=== PATIENT | female | born 1940 | race Caucasian/White ===

== ENCOUNTER → 2017-12-27 | Outpatient (CLI) | payer MEDICARE ==
--- NOTE | 2017-12-27 14:08 | Diagnostic Imaging Report ---
PROCEDURE: CT head without contrast. TECHNIQUE: Multiple contiguous axial images were obtained through the brain without the use of intravenous contrast. INDICATION: Dizziness. COMPARISON: None. FINDINGS: Moderate generalized cerebral and cerebellar parenchymal volume loss is likely age-appropriate. No CT evidence of acute infarction. No intracranial hemorrhage, mass effect, hydrocephalus or extra-axial fluid collections. Osseous structures are intact. The visualized paranasal sinuses and mastoids are clear. IMPRESSION: No acute intracranial CT findings. Dictated by: Dictated on workstation # [id number]
== END ==
LOC: RAD 12:51
PROVIDERS: ATTEND Internal Medicine
DX: R42 Dizziness and giddiness (principal)
CPT/HCPCS: 70450

== ENCOUNTER → 2018-01-08 | Outpatient (CLI) | payer MEDICARE ==
[~2018-01-08] MED LIST: RT-ALBUTEROL SULF 2.5 MG/3 ML PRE-MIX VIAL INH ONE
== END ==
LOC: RT 13:58
PROVIDERS: ATTEND Internal Medicine
DX: J44.9 Chronic obstructive pulmonary disease, unspecified (principal)
CPT/HCPCS: 94060; 94726; 94729

== ENCOUNTER 2018-08-13 08:37 | Outpatient (RCR) | payer MEDICARE | END 2018-11-11 | disposition home or self-care (01) | LOC: CARD 08:37 | PROVIDERS: ATTEND Internal Medicine | DX: R00.2 Palpitations (principal) | CPT/HCPCS: 93225; 93226 ==

== ENCOUNTER 2018-09-25 10:43 | Outpatient (RCR) | payer MEDICARE | END 2018-11-24 | disposition home or self-care (01) | LOC: CARD 10:43 | PROVIDERS: ATTEND Internal Medicine | DX: R00.2 Palpitations (principal) | CPT/HCPCS: 93270 ==

== ENCOUNTER → 2020-11-01 | Outpatient (CLI) | payer MEDICARE, OTHER ==
--- NOTE | 2020-11-01 12:24 | Diagnostic Imaging Report ---
EXAMINATION: PA and lateral chest at 10:57 a.m. INDICATION: COPD COMPARISON: There are no prior studies available for comparison. FINDINGS: The heart size is within normal limits. There are coarse perihilar markings bilaterally. There also appears to be a small area of increased density near the apex of the heart. These findings are most likely chronic in nature. There is no evidence for failure, pneumonia or for a pleural effusion to indicate an acute abnormality. There is a 3.0 x 4.7 cm area of eventration of the midportion of the right hemidiaphragm. The mediastinum is not widened. The osseous structures are intact. IMPRESSION: There is chronic pulmonary disease but there is no sign of an acute cardiopulmonary abnormality. Dictated by: Dictated on workstation # [id number]
== END ==
LOC: RAD 10:17
PROVIDERS: ATTEND Internal Medicine
DX: J44.9 Chronic obstructive pulmonary disease, unspecified (principal); E11.9 Type 2 diabetes mellitus without complications
CPT/HCPCS: 71046

== ENCOUNTER → 2021-02-08 | Outpatient (CLI) | payer MEDICARE, OTHER ==
--- NOTE | 2021-02-08 15:10 | Diagnostic Imaging Report ---
PROCEDURE: US right lower extremity venous. TECHNIQUE: Multiple real-time grayscale images were obtained over the right lower extremity in various projections. Additional spectral analysis and color Doppler duplex images were also obtained. INDICATION: Right lower extremity pain and edema. There is no evidence of right lower extremity DVT. Right lower extremity deep venous system shows normal compressibility with normal response to augmentation and Valsalva. No fluid collection or mass is detected. IMPRESSION: No evidence of right lower extremity DVT. Dictated by: Dictated on workstation # [id number]
== END ==
LOC: RAD 13:30
PROVIDERS: ATTEND Internal Medicine
DX: M79.661 Pain in right lower leg (principal); R60.0 Localized edema

== ENCOUNTER → 2021-03-13 | Outpatient (CLI) | payer MEDICARE, OTHER ==
--- NOTE | 2021-03-13 09:30 | Diagnostic Imaging Report ---
INDICATION: GENERALIZED EDEMA TECHNIQUE: Multiple real-time fleming scale sonographic images of the abdomen. CORRELATION STUDY: None FINDINGS: LIVER: Liver length 17.8 cm. At the hepatic dome, there is a rounded hypoechoic region. This measures 1.7 x 2.1 x 1.1 cm. No internal vascular blood flow. There is normal, hepatopedal direction of flow within the main portal vein. GALLBLADDER: Multiple mobile shadowing gallstones. No significant gallbladder wall thickening. Gallbladder is mildly distended. COMMON BILE DUCT: Nondilated at 0.5 cm. PANCREAS: Limited in visualization. The visualized portions appearing unremarkable. SPLEEN: Unremarkable. ABDOMINAL AORTA: Asymmetric ectasia at the inferior aspect up to 2.7 cm in size. INFERIOR VENA CAVA: Limited in visualization. RIGHT KIDNEY: 11.5 x 5.6 x 7.1 cm. Unremarkable. LEFT KIDNEY: 11.4 x 4.9 x 4.9 cm. Unremarkable. OTHER: There is note made of large amount of stool and/or gas in the gastrointestinal tract. This does limit overall assessment. IMPRESSION: 1. Indeterminate lesion of the hepatic dome. Could potentially reflect a cyst but cannot be dismissed as cyst this time. Short-term followup repeat ultrasound or preferably pre and post contrast-enhanced CT imaging the abdomen. 2. Cholelithiasis. 3. Ectasia of the abdominal aorta just under 3 cm maximum size. Dictated by: Dictated on workstation # [id number]
== END ==
LOC: CARD 08:00
PROVIDERS: ATTEND Internal Medicine
DX: K76.89 Other specified diseases of liver (principal); K80.20 Calculus of gallbladder without cholecystitis without obstruction; I77.811 Abdominal aortic ectasia; R60.1 Generalized edema
CPT/HCPCS: 76700; 93306

== ENCOUNTER → 2021-03-23 | Outpatient (CLI) | payer MEDICARE, OTHER ==
[~2021-03-23] MED LIST changes: +CATHETER FLUSH 10 ML SYR IV PRN; +HOLD METFORMIN - RECEIVED CONTRAST 20 ML VIAL IV SCH; +IOHEXOL 350 MG/ML 100 ML (OMNIPAQUE 350) VIAL IV ONE; +NS 100 ML (IVPB) BAG IV ONE; -RT-ALBUTEROL SULF 2.5 MG/3 ML PRE-MIX VIAL INH ONE
[2021-03-23 07:53] LABS: CHLORIDE 106 MMOL/L (98-107); POTASSIUM 4.1 MMOL/L (3.6-5.0); SODIUM 141 MMOL/L (135-145)
[2021-03-23 07:55] LABS: CALCIUM 9.6 MG/DL (8.5-10.1); GLUCOSE 124 MG/DL (70-105)
[2021-03-23 07:57] LABS: CARBON DIOXIDE 23 MMOL/L (21-32)
[2021-03-23 07:59] LABS: GFR ESTIMATED > 60
[2021-03-23 08:00] LABS: BUN/CREATININE RATIO 26
--- NOTE | 2021-03-23 09:14 | Diagnostic Imaging Report ---
PROCEDURE: CT abdomen and pelvis with and without contrast. TECHNIQUE: Precontrast acquisitions were acquired through the abdomen and pelvis. Multiple contiguous axial images were obtained through the abdomen and pelvis after the administration of intravenous contrast. Auto Exposure Controls were utilized during the CT exam to meet ALARA standards for radiation dose reduction. INDICATION: Liver lesion noted by recent ultrasound. Study is performed for further evaluation. Correlation is made with abdominal ultrasound from 03/13/2021. FINDINGS: The lung bases are clear. There are 2 low-density lesions within the liver. One of which is in the dome, corresponding to the ultrasound abnormality. These do not show contrast enhancement and are most consistent with cysts. Lesion at the dome measures 15 mm. Lesion more inferiorly in the right lobe peripherally measures 13 mm. Gallbladder is unremarkable. There is no biliary ductal dilatation. The pancreas and spleen are unremarkable. No adrenal mass is detected. Kidneys are unremarkable. Aorta is nonaneurysmal but calcified. The small and large bowel loops are normal caliber. There is no free fluid or fluid collection. Bladder is decompressed. No definite abdominal or pelvic lymphadenopathy is detected. There are postoperative changes of posterior instrumented fusion lower lumbar spine. IMPRESSION: 1. Hepatic cysts. 2. Otherwise unremarkable CT of the abdomen and pelvis. No acute feature is detected. Dictated by: Dictated on workstation # [id number]
== END ==
LOC: RAD 08:15
PROVIDERS: ATTEND Internal Medicine
DX: Z51.81 Encounter for therapeutic drug level monitoring (principal); K76.89 Other specified diseases of liver
CPT/HCPCS: 36415; 74178; 80048

== ENCOUNTER → 2021-05-31 | Outpatient (CLI) | payer MEDICARE, OTHER ==
--- NOTE | 2021-05-31 16:28 | Diagnostic Imaging Report ---
INDICATION: Chest pain. TECHNIQUE: Three views of the right ribs were obtained. FINDINGS: There is focal eventration of the right hemidiaphragm. The lungs are clear. There are no effusions or pneumothoraces. There are no displaced rib fractures seen. IMPRESSION: No displaced rib fractures are seen in the right thoracic cage. Dictated by: Dictated on workstation # [id number]
== END ==
LOC: RAD 14:44
PROVIDERS: ATTEND Internal Medicine
DX: R07.89 Other chest pain (principal)
CPT/HCPCS: 71100

== ENCOUNTER 2021-07-10 10:48 | Outpatient (RCR) | payer MEDICARE, OTHER | END 2021-07-13 11:06 | disposition home or self-care (01) | PROVIDERS: ATTEND Internal Medicine | DX: M99.02 Segmental and somatic dysfunction of thoracic region (principal); I10 Essential (primary) hypertension; J43.9 Emphysema, unspecified; E11.9 Type 2 diabetes mellitus without complications ==

== ENCOUNTER 2022-06-25 11:08 | Emergency (ER) | payer MEDICARE, OTHER ==
[~2022-06-25] VITALS: Ht 160 cm; Wt 91.1 kg
--- NOTE | 2022-06-25 11:57 | ED Fall/Injury ---
General Chief Complaint: Trauma-Non Activation Stated Complaint: FALL HEAD/FACE INJURY Nursing Triage Note: SEE TRIAGE Source: patient Exam Limitations: no limitations History of Present Illness Date Seen by Provider: Jun 25, 2022 Time Seen by Provider: 11:38 Initial Comments This is a well-appearing 82-year-old female who presented to the ER via POV with daughter for complaints of bilateral facial bruising and left knee pain from a same level fall that occurred on Saturday. States that she was ambulating up and down her driveway and was about to go inside her house when her right leg gave out and she fell forward hitting the left side of her forehead on a metal swing and her left knee on concrete. States she had no loss of consciousness, no neck pain, did not "see stars". She did have a forehead hematoma that has mostly resolved but now she has two small black eyes. Does not take blood thinners, antiplatelet medications, vitamin E, [place] fatty acid, or any other OTC vitamins. She states she still has some mild discomfort in her knees, no headache, vision changes, neck pain, nausea, vomiting, changes in balance or gait. States she does not feel the need to be here but is appeasing her family by getting checked out. Allergies and Home Medications Allergies Coded Allergies: Sulfa (Sulfonamide Antibiotics) (Verified Allergy, Unknown, 01/08/18) Patient Home Medication List Home Medication List Reviewed: Yes Review of Systems Review of Systems Constitutional: no symptoms reported Eyes: See HPI; Denies Blurred Vision, Denies Pain, Denies Photophobia Ears, Nose, Mouth, Throat: no symptoms reported Respiratory: no symptoms reported Cardiovascular: no symptoms reported Gastrointestinal: no symptoms reported Genitourinary: no symptoms reported Musculoskeletal: No back pain, No neck pain Skin: see HPI Psychiatric/Neurological: No Symptoms Reported Past Vutcjvj-Dscaza-Rrrvfk Hx Patient Social History Tobacco Use?: No Substance use?: No Alcohol Use?: No Pt feels they are or have been: No Immunizations Up To Date Tetanus Booster (TDap): Less than 5yrs First/Initial COVID19 Vaccinat: UNK Second COVID19 Vaccination Monster: UNK Past Medical History Reproductive Disorders: No [employer] History: Hysterectomy Sexually Transmitted Disease: No HIV/AIDS: No Diabetes, Non-Insulin dep Cervical Adverse Reaction/Blood Tranf: No Physical Exam Vital Signs Vital Signs - First Documented 06/25/22 11:16 Pulse 80 Resp 20 B/P (MAP) 187/96 (126) Pulse Ox 94 O2 Delivery Room Air Capillary Refill : Less Than 3 Seconds Height, Weight, BMI Height: '" Weight: 182lbs. oz. 82.123463vn; 35.00 BMI Method: General Appearance: WD/WN, no apparent distress HEENT: PERRL/EOMI, normal ENT inspection, TMs normal, pharynx normal, other (neg hemotympanum, small right forehead hematoma, bilateral periorbital bruising ) Neck: non-tender, full range of motion, supple, normal inspection Cardiovascular: regular rate, rhythm, no edema, systolic murmur Respiratory: chest non-tender, lungs clear, normal breath sounds, no respiratory distress, no accessory muscle use Gastrointestinal: normal bowel sounds, non tender, soft Back: normal inspection, no vertebral tenderness; No vertebral tenderness Extremities: normal range of motion, non-tender, normal inspection, no calf tenderness, other (Bilateral knee tenderness, no swelling, abrasion to left knee ) Neurologic/Psychiatric: no motor/sensory deficits, alert, normal mood/affect, oriented x 3 Skin: normal color, warm/dry [place] Coma Score Best Eye Response: (4) Open Spontaneously Best Verbal Response: (5) Oriented Best Motor Response: (6) Obeys Commands [place] Total: 15 Progress/Results/Core Measures Results/Orders My Orders Orders - SHAHID DEVINE APRN Ct Head/Face/Cervical Wo (06/25/22 11:51) Knee, 3 Views, Bilateral (06/25/22 11:51) Dipht,Pertuss(Acell),Tet Adult (Boostrix (06/25/22 13:15) Vital Signs/I&O 06/25/22 06/25/22 11:16 13:24 Pulse 80 70 Resp 20 20 B/P (MAP) 187/96 (126) 174/98 Pulse Ox 94 93 O2 Delivery Room Air Room Air Blood Pressure Mean: 126 Progress Progress Note : Progress Note Patient examined and in no acute distress. GCS-15. ABC's intact. No focal or gross neurological deficits. CT imaging of head and cervical spine w/o negative for fractures, intracranial bleeding, does have mild scalp hematoma over right forehead. X-rays knee negative for fractures, effusion. Has incidental tiny cavitary lesions, states this is chronic in nature, and has been evaluated in the past, but was under the impression it had resolved. Head injury warning signs reviewed and strict return precautions discussed. Discharge POC reviewed with patient and daughter. They are agreeable with plan. Diagnostic Imaging Diagonstic Imaging: Xray Comments [facility], [place] NAME: SHILO PARADA [facility] REC#: [id number] PT STATUS: DEP ER : 1940 PHYSICIAN: SHAHID DEVINE NITRO MAN ADMIT DATE: 06/25/22/ER Signed Date of Exam:06/25/22 KNEE, 3 VIEWS, BILATERAL Indication: Fall with bilateral knee pain. Comparison: None. Discussion: Three views of the bilateral knees were obtained. Moderate degenerative disease is noted bilaterally. No effusion. No fracture or dislocation. Alignment is anatomic. Mild soft tissue swelling is noted bilaterally. Impression: 1. Moderate bilateral knee degenerative joint disease. No fracture. Dictated by: Dictated on workstation # [id number] Dict: 06/25/22 1235 Trans: 06/25/22 1525 [facility] [id number] Interpreted by: SAMANTHA FERNANDEZ MD Electronically signed by: SAMANTHA FERNANDEZ MD 06/25/22 1525 Diagonstic Imaging: CT Comments [facility], [place] NAME: SHILO PARADA [facility] REC#: [id number] PT STATUS: REG ER : 1940 PHYSICIAN: SHAHID DEVINE NITRO MAN ADMIT DATE: 06/25/22/ER Signed Date of Exam:06/25/22 CT HEAD/FACE/CERVICAL WO PROCEDURE: CT head, face, and cervical spine without contrast. TECHNIQUE: Multiple contiguous axial images were obtained through the head, neck, and facial bones without the use of intravenous contrast. Sagittal and coronal reformations through the cervical spine and facial bones were also performed. Auto Exposure Controls were utilized during the CT exam to meet ALARA standards for radiation dose reduction. INDICATION: Fell on face. Black eyes and head and face pain. EXAMINATION: CT brain, maxillofacial and cervical spine without contrast 06/25/2022 FINDINGS: Brain: There is no evidence for acute hemorrhage. No mass, mass effect or midline shift. No hydrocephalus. No acute infarct. Paranasal sinuses and mastoid air cells appear clear. Calvarium is intact. There is a right paracentral anterior scalp hematoma. IMPRESSION: 1. Scalp hematoma with no acute intracranial process. CT MAXILLOFACIAL: Mild deviation of the nasal septum to the right likely chronic with right-sided spurring noted. As seen on sagittal imaging there are linear vertical lucencies which could represent prominent nutrient foramen. These lie along the anterior aspect of the maxilla. A nondisplaced fracture felt to be less likely but correlation for point tenderness recommended. The remaining osseous structures appear to be intact. The temporomandibular joints demonstrate degenerative findings bilaterally. There are no dislocations. Soft tissues unremarkable. Both orbits intact with minimal adjacent soft tissue swelling adjacent anterior to the right globe. Post septal spaces unremarkable. IMPRESSION: 1. Lucency seen on the sagittal view only within the anterior maxilla most likely a prominent nutrient foramina. A fracture less likely given its appearance but correlation for point tenderness recommended. Remaining osseous structures intact. 2. Mild hematoma overlying the right lobe with the globe itself unremarkable. CT CERVICAL SPINE: There is normal height and alignment of the vertebral bodies. No fractures identified. Multilevel bilateral facet hypertrophy noted. 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 Prevertebral soft tissues unremarkable. Visualized lung apices demonstrate scar or atelectasis in the left medial upper lobe. Tiny cavitary lesions difficult to completely exclude as this is incompletely imaged. IMPRESSION: 1. Degenerative findings throughout the spine with no acute fractures identified. 2. Nonspecific findings in the left upper lobe. Tiny cavitary lesions difficult to exclude given incomplete visualization. Dictated by: Dictated on workstation # [id number] Dict: 06/25/22 1219 Trans: 06/25/22 1302 CV [id number] Interpreted by: MASOUD OTOOLE MD Electronically signed by: MASOUD OTOOLE MD 06/25/22 1302 Departure Impression Primary Impression: Fall on same level Additional Impressions: Hematoma of frontal scalp Knee pain, bilateral Disposition: 01 HOME, SELF-CARE Condition: Stable/Unchanged Departure-Patient Inst. Decision time for Depature: 13:03 Referrals: DOTTY PARADA DO (PCP/Family) Primary Care Physician Patient Instructions: Minor Contusion ED, Knee Pain ED Add. Discharge Instructions: Plan: 1. Discharge home. Wash abrasion with mild soap and water, pat dry. Watch for increased redness or pain which may indicate cellulitis. 2.Contact your family physician, or return to the ER immediately if any of the following are observed. -Repeated vomiting -Confusion, delirium or disorientation -Blurred vision or double vision -A difference in pupil size comparing left to right (black part of the eye) -Twitching or convulsions -Clear or blood fluid from the nose or ears -Persistent headaches or the worst headache of your life -Weakness of face, arm or leg muscles -Difficulty in rousing patient (the patient should be awakened every 2 hours during the first night) 3. Take nothing stronger than Tylenol or Ibuprofenfor pain. 4. Avoid alcohol intake. 5. Return to ER for any other new, concerning, or worsening symptoms. 6. Your tetanus was updated today. The shot site may become warm, swollen, red or tender, this is normal. You may also have a low grade fever. All discharge instructions reviewed with patient and/or family. Voiced understanding. SHAHID DEVINE NITRO MAN Jun 25, 2022 11:57
--- NOTE | 2022-06-25 12:36 | Diagnostic Imaging Report ---
PROCEDURE: CT head, face, and cervical spine without contrast. TECHNIQUE: Multiple contiguous axial images were obtained through the head, neck, and facial bones without the use of intravenous contrast. Sagittal and coronal reformations through the cervical spine and facial bones were also performed. Auto Exposure Controls were utilized during the CT exam to meet ALARA standards for radiation dose reduction. INDICATION: Fell on face. Black eyes and head and face pain. EXAMINATION: CT brain, maxillofacial and cervical spine without contrast 06/25/2022 FINDINGS: Brain: There is no evidence for acute hemorrhage. No mass, mass effect or midline shift. No hydrocephalus. No acute infarct. Paranasal sinuses and mastoid air cells appear clear. Calvarium is intact. There is a right paracentral anterior scalp hematoma. IMPRESSION: 1. Scalp hematoma with no acute intracranial process. CT MAXILLOFACIAL: Mild deviation of the nasal septum to the right likely chronic with right-sided spurring noted. As seen on sagittal imaging there are linear vertical lucencies which could represent prominent nutrient foramen. These lie along the anterior aspect of the maxilla. A nondisplaced fracture felt to be less likely but correlation for point tenderness recommended. The remaining osseous structures appear to be intact. The temporomandibular joints demonstrate degenerative findings bilaterally. There are no dislocations. Soft tissues unremarkable. Both orbits intact with minimal adjacent soft tissue swelling adjacent anterior to the right globe. Post septal spaces unremarkable. IMPRESSION: 1. Lucency seen on the sagittal view only within the anterior maxilla most likely a prominent nutrient foramina. A fracture less likely given its appearance but correlation for point tenderness recommended. Remaining osseous structures intact. 2. Mild hematoma overlying the right lobe with the globe itself unremarkable. CT CERVICAL SPINE: There is normal height and alignment of the vertebral bodies. No fractures identified. Multilevel bilateral facet hypertrophy noted. 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 Prevertebral soft tissues unremarkable. Visualized lung apices demonstrate scar or atelectasis in the left medial upper lobe. Tiny cavitary lesions difficult to completely exclude as this is incompletely imaged. IMPRESSION: 1. Degenerative findings throughout the spine with no acute fractures identified. 2. Nonspecific findings in the left upper lobe. Tiny cavitary lesions difficult to exclude given incomplete visualization. Dictated by: Dictated on workstation # [id number]
--- NOTE | 2022-06-25 12:37 | Diagnostic Imaging Report ---
Indication: Fall with bilateral knee pain. Comparison: None. Discussion: Three views of the bilateral knees were obtained. Moderate degenerative disease is noted bilaterally. No effusion. No fracture or dislocation. Alignment is anatomic. Mild soft tissue swelling is noted bilaterally. Impression: 1. Moderate bilateral knee degenerative joint disease. No fracture. Dictated by: Dictated on workstation # [id number]
[2022-06-25] MEDS ORDERED: TETANUS,DIPTH,PERTUSS P/F (BOOSTRIX) 0.5 ML VIAL IM ONE (13:15)
[2022-06-25 13:24] VITALS: BP 174/98
== END 2022-06-25 13:20 | disposition home or self-care (01) ==
LOC: EDUNIT# 11:08 → ER 11:11
DX: S00.03XA Contusion of scalp, initial encounter (principal); M25.561 Pain in right knee; M25.562 Pain in left knee; W18.39XA Other fall on same level, initial encounter; W22.8XXA Striking against or struck by other objects, initial encounter; Y92.008 Other place in unspecified non-institutional (private) residence as the place of occurrence of the external cause
CPT/HCPCS: 70450; 70486; 72125; 90715